=== PATIENT | female | born 1930 | race Caucasian/White ===

== ENCOUNTER 2016-09-25 22:53 | Emergency (ER) | payer OTHER ==
[~2016-09-25] VITALS: Ht 162.6 cm; Wt 54.4 kg
--- NOTE | ~2016-09-25 | EKG ---
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: KAMALA : 1930 Requested By: Balta Umaña Order Number: [id number] MD: Donaldo Cleveland Measurements Intervals [place] Rate: 92 P: 45 [place]: 174 QRS: 6 QRSD: 91 T: 66 QT: 365 QTc: 452 Interpretive Statements Sinus rhythm Low voltage, extremity leads Compared to ECG 12/23/2012 13:44:54 Low QRS voltage now present Sinus bradycardia no longer present Electronically Signed On 09-26-2016 8:09:33 CDT by Donaldo Cleveland [email or web address] <ELECTRONICALLY SIGNED> By: Donaldo Cleveland MD 05/808 06 06 Donaldo Cleveland MD /SAM
[~2016-09-25 22:53] MED LIST: CELEXA10 MG PO; COLACE100 MG PO; NOHOMEMEDICATIONS; NORCO 5-325 TA1 EACH PO
[2016-09-25 23:41] LABS: ABSOLUTE NEUTROPHILS 3.9 thou/uL (1.4-8.2); BASOPHILS 0.6 % (0.0-2.0); HEMATOCRIT 37.5 % (37.0-47.0); HEMOGLOBIN 12.3 gm/dL (12.0-15.0); LYMPHOCYTES 21.1 % (24.0-44.0); MCH 30.5 pg (26.0-34.0); MCHC 32.8 g/dL (28.0-37.0); MCV 93.2 fL (80.0-100.0); MONOCYTES 8.4 % (1.0-8.0); PLATELET COUNT 167 thou/uL (150-400); POLYS 66.9 % (36.0-66.0); RBC 4.03 mil/uL (4.20-5.00); RDW 15.9 % (10.5-14.5); WBC 5.9 thou/uL (4.0-11.0)
[2016-09-25 23:45] LABS: MANUAL DIFF NO
[2016-09-25 23:50] LABS: URINE BILIRUBIN NEGATIVE (Negative); URINE BLOOD NEGATIVE (Negative); URINE COLOR YELLOW; URINE GLUCOSE-RANDOM* NEGATIVE (Negative); URINE KETONES NEGATIVE (Negative); URINE LEUKOCYTES-REFLEX NEGATIVE (Negative); URINE PROTEIN (DIPSTICK) NEGATIVE (Negative); URINE SPECIFIC GRAVITY >= 1.030 (1.003-1.035)
[2016-09-25 23:56] LABS: ANION GAP 13 mmol/L (7-16); BUN 15 mg/dL (7-18); CALCIUM 9.2 mg/dL (8.5-10.1); CHLORIDE 103 mmol/L (98-107); CO2 26 mmol/L (21-32); CREATININE 0.9 mg/dL (0.6-1.0); GLUCOSE 146 mg/dL (74-106); SODIUM 142 mmol/L (136-145); TROPONIN-I < 0.04 ng/mL (<0.04-0.07)
[2016-09-26 00:21] LABS: LARGE PLATELETS RARE
[2016-09-26 00:55] VITALS: BP 111/74
== END 2016-09-26 02:33 | disposition home or self-care (01) ==
LOC: ER 22:53
PROVIDERS: Emergency Medicine
DX: R07.89 Other chest pain (principal); R53.1 Weakness; F03.90 Unspecified dementia, unspecified severity, without behavioral disturbance, psychotic disturbance, mood disturbance, and anxiety; Z90.89 Acquired absence of other organs; Z90.49 Acquired absence of other specified parts of digestive tract; Z90.710 Acquired absence of both cervix and uterus; Z88.2 Allergy status to sulfonamides; Z88.8 Allergy status to other drugs, medicaments and biological substances; Z87.891 Personal history of nicotine dependence

== ENCOUNTER 2017-01-16 21:18 | Inpatient (IN) | payer OTHER ==
[~2017-01-16] VITALS: Ht 144.8 cm; Wt 51.7 kg
--- NOTE | ~2017-01-16 | EKG ---
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 : 1930 Requested By: Brayan Garnett Order Number: [id number] MD: Jomar Bowman Measurements Intervals [place] Rate: 94 P: 52 MD: 177 QRS: 3 QRSD: 101 T: 35 QT: 359 QTc: 449 Interpretive Statements Sinus rhythm Borderline low voltage, extremity leads Compared to ECG 09/25/2016 23:07:19 No significant change was found Electronically Signed On 01-17-2017 8:35:05 CDT by Jomar Bowman [email or web address] <ELECTRONICALLY SIGNED> By: Jomar Bowman MD, [facility] 01/17/17 0835 21 21 Jomar Bowman MD, [facility] /EPI
[2017-01-16 21:20] VITALS: BP 125/83
[2017-01-16 21:49] LABS: ABSOLUTE NEUTROPHILS 4.6 thou/uL (1.4-8.2); BASOPHILS 0.4 % (0.0-2.0); EOSINOPHILS 1.5 % (0.0-3.0); HEMATOCRIT 39.9 % (37.0-47.0); LYMPHOCYTES 22.3 % (24.0-44.0); MCH 30.4 pg (26.0-34.0); MCHC 32.7 g/dL (28.0-37.0); MONOCYTES 6.7 % (1.0-8.0); PLATELET COUNT 134 thou/uL (150-400); POLYS 69.1 % (36.0-66.0); RBC 4.29 mil/uL (4.20-5.00); RDW 15.1 % (10.5-14.5); WBC 6.7 thou/uL (4.0-11.0)
[2017-01-16 21:52] LABS: MANUAL DIFF NO
[2017-01-16] MEDS ORDERED: ZYPREXA 10 MG T10 MG PO (21:54)
[2017-01-16] MEDS ORDERED: ARICEPT 5 MG TAB5 MG PO (21:54)
[2017-01-16] MEDS ORDERED: ASA5UEC PO (21:55)
[2017-01-16] MEDS ORDERED: PEPCID20 MG PO (21:55)
[2017-01-16 22:06] LABS: ANION GAP 9 mmol/L (7-16); BUN 26 mg/dL (7-18); CALCIUM 9.2 mg/dL (8.5-10.1); CHLORIDE 106 mmol/L (98-107); CO2 26 mmol/L (21-32); GLUCOSE 176 mg/dL (74-106); POTASSIUM 3.8 mmol/L (3.5-5.1); SODIUM 141 mmol/L (136-145)
[2017-01-16 22:14] LABS: TROPONIN-I < 0.04 ng/mL (<0.04-0.07)
[2017-01-17] VITALS (8 sets, daily range): BP systolic 124–141; BP diastolic 76–95
[2017-01-17 00:32] LABS: APTT 26.2 Seconds (24.5-32.8); PROTIME 10.4 Seconds (9.3-11.4)
[2017-01-17] MEDS ORDERED: ZYPREXA 10 MG T10 MG PO (00:36)
[2017-01-17 07:39] LABS: HEMATOCRIT 37.6 % (37.0-47.0); HEMOGLOBIN 12.1 gm/dL (12.0-15.0); MCH 30.1 pg (26.0-34.0); MCHC 32.2 g/dL (28.0-37.0); MCV 93.5 fL (80.0-100.0); RBC 4.02 mil/uL (4.20-5.00); RDW 14.9 % (10.5-14.5); WBC 7.6 thou/uL (4.0-11.0)
[2017-01-17 08:25] LABS: ANION GAP 8 mmol/L (7-16); BUN 31 mg/dL (7-18); CALCIUM 8.7 mg/dL (8.5-10.1); CHLORIDE 106 mmol/L (98-107); CO2 26 mmol/L (21-32); CREATININE 0.8 mg/dL (0.6-1.0); GLUCOSE 117 mg/dL (74-106); POTASSIUM 3.9 mmol/L (3.5-5.1); SODIUM 140 mmol/L (136-145); TROPONIN-I < 0.04 ng/mL (<0.04-0.07)
[2017-01-18 03:56] VITALS: BP 108/68
[2017-01-18 04:17] LABS: HEMATOCRIT 29.1 % (37.0-47.0); MCH 30.8 pg (26.0-34.0); MCHC 33.3 g/dL (28.0-37.0); MCV 92.5 fL (80.0-100.0); RBC 3.15 mil/uL (4.20-5.00); WBC 5.2 thou/uL (4.0-11.0)
[2017-01-18 04:31] LABS: HEMOGLOBIN 9.7 gm/dL (12.0-15.0)
[2017-01-18 04:53] LABS: ALBUMIN 2.8 g/dL (3.4-5.0); CALCIUM 8.2 mg/dL (8.5-10.1); CREATININE 0.7 mg/dL (0.6-1.0); PHOSPHORUS 3.6 mg/dL (2.5-4.9); POTASSIUM 3.8 mmol/L (3.5-5.1)
[2017-01-18 10:41] VITALS: BP 100/62
[2017-01-18 12:18] VITALS: BP 116/70
[2017-01-18 15:45] VITALS: BP 100/64
[2017-01-18 17:07] VITALS: BP 100/64
[2017-01-18 17:09] VITALS: BP 100/64
== END 2017-01-18 18:07 | disposition home or self-care (01) | DRG 166 ==
LOC: ER 21:18 → EROBS 01-17 00:22 → 4W 01-17 00:22
PROVIDERS: Hospitalist; Nurse Practitioner Family; Physician Assistant
PROC: B5191ZZ Fluoroscopy of Inferior Vena Cava using Low Osmolar Contrast (ICD-10-PCS; principal; 2017-01-17)
PROC: 06H03DZ Insertion of Intraluminal Device into Inferior Vena Cava, Percutaneous Approach (ICD-10-PCS; principal; 2017-01-17)
DX: I26.99 Other pulmonary embolism without acute cor pulmonale (principal); J96.00 Acute respiratory failure, unspecified whether with hypoxia or hypercapnia; F03.91 Unspecified dementia, unspecified severity, with behavioral disturbance; I10 Essential (primary) hypertension; I71.4 Abdominal aortic aneurysm, without rupture; Z90.49 Acquired absence of other specified parts of digestive tract; Z90.710 Acquired absence of both cervix and uterus; Z88.2 Allergy status to sulfonamides; Z87.891 Personal history of nicotine dependence; Z86.718 Personal history of other venous thrombosis and embolism; Z79.82 Long term (current) use of aspirin; Z79.899 Other long term (current) drug therapy; Z86.73 Personal history of transient ischemic attack (TIA), and cerebral infarction without residual deficits; Z87.81 Personal history of (healed) traumatic fracture
CPT/HCPCS: 10045

== ENCOUNTER 2017-04-11 16:04 | Inpatient (IN) | payer OTHER ==
[~2017-04-11] VITALS: Ht 149.9 cm; Wt 81.6 kg
--- NOTE | ~2017-04-11 | HC ---
[facility] [place] [address] [place] [address] CONSULTATION Name: ESTRELLA CHOE Jenaro Room #: 423-1 [facility] IN .R.#: [id number] Admission: 04/11/17 Attend Phys: Eliceo Higgins MD Discharge: 04/16/17 Date of : 32 Report #: [id number] THIS REPORT FOR: //name// CC: Eliceo Jimenez DATE OF SERVICE: 04/13/2017 HISTORY OF PRESENT ILLNESS: The patient is an 86-year-old white female with a history of prior pulmonary emboli, bilateral DVT, had an IVC filter on 01/2017, was having problems with recurrent falls, and was discharged from [facility] to [facility] on 03/20/2017. She had significant lower extremity edema at that time. While at [facility], the daughter notes her swelling gradually worsened. She was eventually discharged from the long term facility on 04/05/2017. Daughter notes that upon taking her home she was significantly swollen as far as her lower extremities and had considerable difficulty with any attempted ambulation. The patient has now been readmitted to [facility] with increasing lower extremity edema. Ultrasound of the lower extremities revealed acute appearing occlusive DVT within bilateral lower extremities. Internal Medicine is involved, was trying to diuresed her with some difficulty with her large amount of clot burden. She has a prior history of an abdominal aortic aneurysm and a CT is completed with plan to start Eliquis, pending results. The patient has had a significant functional decline and we are seeing her in rehabilitation medicine consultation. She was noted to have severe bilateral lower extremity edema. PAST MEDICAL HISTORY: Includes AAA, bilateral DVTs, pulmonary emboli 08/21 and 01/21, dementia, nevertheless living in the community with family, history of left elbow fracture, left wrist fracture, right arm fracture, left ankle fracture, bladder tuck up, hysterectomy. PAST SURGICAL HISTORY: As noted above. HABITS: Past history of tobacco abuse. No history of alcohol abuse. SOCIAL HISTORY: She lives with her supportive involved daughter. Daughter works during the day, but had been taking her to the adult daycare every day. The patient was able to ambulate short distances with her walker and was able to ambulate up and down the 6 steps within the house. REVIEW OF SYSTEMS: Did not offer any current complaints of chest pain, shortness of breath, or abdominal discomfort. PHYSICAL EXAMINATION: GENERAL: An 86-year-old white female, in no obvious distress. She is overall a thin, small statured, [place] [address] CONSULTATION Name: ESTRELLA CHOE Room #: 423-1 [facility] IN [facility].#: [id number] Admission: 04/11/17 Attend Phys: Eliceo Higgins MD Discharge: 04/16/17 Date of : 32 Report #: [id number] VITAL SIGNS: Temperature 96.9, pulse 65, respirations 16, blood pressure 102/64. HEENT: Faces appeared symmetric. EXTREMITIES: She has functional range of motion of the upper extremities with arthritic changes, most notable involving her hands. In her lower extremities, she has 3+ pitting edema. She is able to move her legs. I would grade her a 3+/5. Tone appeared to be intact. She was mod assist with sit to stand. Gait was 6 steps mod assist. Toilet transfers were mod assist. ASSESSMENT: An 86-year-old white female with the following problem list: 1. Medical complexity with generalized debilitation. 2. Bilateral deep venous thrombosis with history of prior deep venous thrombosis, pulmonary embolism. She is status post prior IVC filter. She now has significantly worsening bilateral lower extremity edema with significant decreased function. 3. History of abdominal aortic aneurysm. 4. Severe bilateral lower extremity edema. 5. History of dementia, nevertheless living in the community. She has been on Aricept. 6. History of acute renal insufficiency. 7. Past history of recurrent falls. 8. History of cardiomegaly. PLAN: The patient was recently discharged from [facility], was just at a long term facility, has had a significant further decline and has considerable lower extremity edema with the complex medical situation as noted above. Rather than going for another long term facility stay, which increases the chances of repeating this process, I think an acute in-hospital inpatient rehabilitation stay where she can receive more close medical management while she is simultaneously undergoing inpatient rehabilitation to improve her functional mobility and ADLs would be indicated. The patient does appear to have the tolerance for an acute rehab stay. I had a long discussion with the daughter who is very supportive and very involved and with desire to have this occur to maximally increase her mother's chances to further improve and make it home at a much improved functional level with improved chances for her to stay at home post-discharge. Insurance will be checked in this regard. <ELECTRONICALLY SIGNED> By: Arnulfo Pinto MD 04/17/17 1414 1122 1224 Arnulfo Pinto MD /PMT
[~2017-04-11 16:04] MED LIST changes: +ACETAMINOPHEN325 M1 PO; +ARICEPT 5 MG TAB5 MG PO; +ASA5UEC PO; +MIRALAX17 GM PO; +PEPCID20 MG PO; +ZYPREXA 10 MG T10 MG PO
[2017-04-11 16:05] VITALS: BP 107/59
[2017-04-11 16:43] LABS: ABSOLUTE NEUTROPHILS 3.6 thou/uL (1.4-8.2); BASOPHILS 1.4 % (0.0-2.0); HEMOGLOBIN 11.3 gm/dL (12.0-15.0); LYMPHOCYTES 29.8 % (24.0-44.0); MCH 27.4 pg (26.0-34.0); MCHC 31.4 g/dL (28.0-37.0); MCV 87.2 fL (80.0-100.0); PLATELET COUNT 251 thou/uL (150-400); POLYS 53.8 % (36.0-66.0); RBC 4.13 mil/uL (4.20-5.00); RDW 17.3 % (10.5-14.5); WBC 6.7 thou/uL (4.0-11.0)
[2017-04-11 16:46] LABS: MANUAL DIFF NO
[2017-04-11] MEDS ORDERED: ZYPREXA 10 MG T10 MG PO (16:46)
[2017-04-11] MEDS ORDERED: LASIX 40 MG TAB40 M2 PO (16:46)
[2017-04-11 16:51] LABS: ANION GAP 6 mmol/L (7-16); BUN 9 mg/dL (7-18); CALCIUM 8.8 mg/dL (8.5-10.1); CHLORIDE 103 mmol/L (98-107); CO2 28 mmol/L (21-32); CREATININE 0.8 mg/dL (0.6-1.0); GLUCOSE 108 mg/dL (74-106); POTASSIUM 4.2 mmol/L (3.5-5.1); SODIUM 137 mmol/L (136-145)
[2017-04-11 16:59] LABS: ALBUMIN 2.9 g/dL (3.4-5.0); ALKALINE PHOSPHATASE 110 U/L (46-116); SGOT 38 U/L (15-37); SGPT 16 U/L (30-65); TOTAL BILIRUBIN 0.5 mg/dL (<0.1-1.0); TOTAL PROTEIN 7.3 g/dL (6.4-8.2); TROPONIN-I < 0.04 ng/mL (<0.06)
[2017-04-11 18:36] LABS: PROTIME 10.1 Seconds (9.3-11.4)
[2017-04-11 18:38] VITALS: BP 134/87
[2017-04-11 18:43] VITALS: BP 109/52
[2017-04-11 19:40] VITALS: BP 111/70
[2017-04-12] VITALS: BP 96/53
[2017-04-12 04:00] VITALS: BP 112/59
[2017-04-12 06:42] LABS: MCH 27.9 pg (26.0-34.0); MCHC 32.3 g/dL (28.0-37.0); MCV 86.4 fL (80.0-100.0); RBC 3.24 mil/uL (4.20-5.00); RDW 16.5 % (10.5-14.5); WBC 4.2 thou/uL (4.0-11.0)
[2017-04-12 06:53] LABS: CALCIUM 8.7 mg/dL (8.5-10.1); CREATININE 0.7 mg/dL (0.6-1.0); POTASSIUM 3.4 mmol/L (3.5-5.1)
[2017-04-12 08:00] VITALS: BP 103/56
[2017-04-12 16:00] VITALS: BP 104/57
[2017-04-12 20:00] VITALS: BP 100/72
[2017-04-13 06:15] VITALS: BP 131/71
[2017-04-13 07:50] VITALS: BP 102/64
[2017-04-13 15:40] VITALS: BP 108/70
[2017-04-13 19:29] VITALS: BP 108/58
[2017-04-14 03:33] VITALS: BP 103/59
[2017-04-14 07:50] VITALS: BP 122/73
[2017-04-14 15:15] VITALS: BP 95/58
[2017-04-14 19:25] VITALS: BP 98/63
[2017-04-15 03:30] VITALS: BP 112/55
[2017-04-15 03:53] LABS: HEMATOCRIT 28.6 % (37.0-47.0); HEMOGLOBIN 9.2 gm/dL (12.0-15.0); MCH 27.5 pg (26.0-34.0); MCHC 32.4 g/dL (28.0-37.0); MCV 84.8 fL (80.0-100.0); RBC 3.37 mil/uL (4.20-5.00); RDW 16.8 % (10.5-14.5); WBC 4.7 thou/uL (4.0-11.0)
[2017-04-15 04:00] LABS: CALCIUM 8.2 mg/dL (8.5-10.1); CREATININE 0.8 mg/dL (0.6-1.0)
[2017-04-15 04:09] LABS: POTASSIUM 2.9 mmol/L (3.5-5.1)
[2017-04-15 09:15] VITALS: BP 111/70
[2017-04-15 17:20] VITALS: BP 99/57
[2017-04-15 20:00] VITALS: BP 100/67
[2017-04-15 23:00] VITALS: BP 129/54
[2017-04-16 04:00] VITALS: BP 116/65
[2017-04-16 04:41] VITALS: BP 122/70
[2017-04-16 06:15] LABS: CALCIUM 8.4 mg/dL (8.5-10.1); CREATININE 0.8 mg/dL (0.6-1.0); POTASSIUM 3.1 mmol/L (3.5-5.1)
[2017-04-16 07:45] VITALS: BP 106/68
[2017-04-16] MEDS ORDERED: ELIQUIS5 MG PO (15:06)
== END 2017-04-16 15:00 | DRG 300 ==
LOC: ER 16:04 → 4E 17:57 → EROBS 17:57 → 4E 18:56
PROVIDERS: Hospitalist; Physician Assistant
DX: I82.413 Acute embolism and thrombosis of femoral vein, bilateral (principal); E46 Unspecified protein-calorie malnutrition; I82.433 Acute embolism and thrombosis of popliteal vein, bilateral; M62.84 Sarcopenia; I71.4 Abdominal aortic aneurysm, without rupture; F03.90 Unspecified dementia, unspecified severity, without behavioral disturbance, psychotic disturbance, mood disturbance, and anxiety; Z90.49 Acquired absence of other specified parts of digestive tract; Z90.710 Acquired absence of both cervix and uterus; Z68.36 Body mass index [BMI] 36.0-36.9, adult; Z88.2 Allergy status to sulfonamides; Z88.8 Allergy status to other drugs, medicaments and biological substances; Z87.891 Personal history of nicotine dependence; Z87.81 Personal history of (healed) traumatic fracture; Z79.82 Long term (current) use of aspirin; Z79.899 Other long term (current) drug therapy
CPT/HCPCS: 10183

== ENCOUNTER 2017-07-10 09:12 | Inpatient (IN) | payer OTHER ==
[~2017-07-10] VITALS: Ht 170.2 cm; Wt 79.4 kg
--- NOTE | ~2017-07-10 | EKG ---
[place] [address] [facility] [place] [place] [address] ELECTROCARDIOGRAM REPORT Name: ESTRELLA CHOE Room #: 432-P ADM IN M.R.#: [id number] Admission: 07/10/17 Attend Phys: Melvin Sherman MD Discharge: Date of : 32 Report #: [id number] THIS REPORT FOR: //name// [facility] ED Test Date: 2017-07-10 Test Time: 10:41:56 Pat Name: ESTRELLA CHOE Department: Room: [facility] Gender: F Rn Telephonic: [facility] : 1930 Requested By: Bridger Koch Order Number: [id number] MD: Jomar Bowman Measurements Intervals [place] Rate: 72 P: 48 [place]: 182 QRS: 31 QRSD: 107 T: 31 QT: 468 QTc: 513 Interpretive Statements Sinus rhythm Borderline low voltage, extremity leads Prolonged QT interval Nonspecific ST segment abnormality Compared to ECG 03/16/2017 09:49:00 Prolonged QT interval now present Electronically Signed On 07-11-2017 7:52:02 CHIPPER OPERATOR by Jomar Bowman [email or web address] <ELECTRONICALLY SIGNED> By: Jomar Bowman MD, [facility] 07/11/17 0752 1041 1041 Jomar Bowman MD, [facility] /EPI
[~2017-07-10 09:12] MED LIST changes: +ELIQUIS5 MG PO; +LASIX 40 MG TAB40 M2 PO
[2017-07-10 11:59] LABS: ANION GAP 8 mmol/L (7-16); BUN 15 mg/dL (7-18); CALCIUM 8.7 mg/dL (8.5-10.1); CHLORIDE 98 mmol/L (98-107); CO2 34 mmol/L (21-32); CREATININE 0.9 mg/dL (0.6-1.0); GLUCOSE 112 mg/dL (74-106); SODIUM 140 mmol/L (136-145)
[2017-07-10 12:07] LABS: ALBUMIN 2.8 g/dL (3.4-5.0); SGOT 25 U/L (15-37); SGPT 22 U/L (30-65); TOTAL BILIRUBIN 0.9 mg/dL (<0.1-1.0); TOTAL PROTEIN 6.2 g/dL (6.4-8.2); TROPONIN-I < 0.04 ng/mL (<0.06)
[2017-07-10 12:08] LABS: POTASSIUM 2.6 mmol/L (3.5-5.1)
[2017-07-10 12:09] LABS: HEMATOCRIT 23.5 % (37.0-47.0); HEMOGLOBIN 7.5 gm/dL (12.0-15.0); MCH 25.2 pg (26.0-34.0); MCHC 32.1 g/dL (28.0-37.0); MCV 78.7 fL (80.0-100.0); PLATELET COUNT 227 thou/uL (150-400); RBC 2.98 mil/uL (4.20-5.00); RDW 17.8 % (10.5-14.5); WBC 4.4 thou/uL (4.0-11.0)
[2017-07-10 12:21] LABS: INR 1.1; PROTIME 11.6 Seconds (9.3-11.4)
[2017-07-10 12:44] LABS: URINE BILIRUBIN NEGATIVE (Negative); URINE BLOOD NEGATIVE (Negative); URINE CLARITY CLEAR; URINE COLOR YELLOW; URINE GLUCOSE-RANDOM* NEGATIVE (Negative); URINE KETONES NEGATIVE (Negative); URINE LEUKOCYTES NEGATIVE (Negative); URINE NITRITE NEGATIVE (Negative); URINE PROTEIN (DIPSTICK) NEGATIVE (Negative)
[2017-07-10 12:58] LABS: ABSOLUTE NEUTROPHILS 2.7 thou/uL (1.4-8.2); PLATELET ESTIMATE NORMAL
[2017-07-10 15:07] VITALS: BP 100/43
[2017-07-10 15:49] VITALS: BP 106/41
[2017-07-10 16:30] VITALS: BP 87/45
[2017-07-10 19:55] VITALS: BP 105/51
[2017-07-11 07:32] VITALS: BP 98/59
[2017-07-11 12:47] VITALS: BP 98/59
[2017-07-11 16:39] VITALS: BP 113/62
[2017-07-11 19:45] VITALS: BP 125/54
[2017-07-12 03:30] VITALS: BP 134/79
[2017-07-12 08:06] VITALS: BP 110/65
[2017-07-12 09:24] LABS: HEMATOCRIT 24.3 % (37.0-47.0); HEMOGLOBIN 7.8 gm/dL (12.0-15.0); MCH 25.6 pg (26.0-34.0); MCHC 31.9 g/dL (28.0-37.0); MCV 80.2 fL (80.0-100.0); RBC 3.03 mil/uL (4.20-5.00); RDW 18.5 % (10.5-14.5); WBC 4.3 thou/uL (4.0-11.0)
[2017-07-12 09:38] LABS: % SATURATION 8 % (20-39); IRON 27 ug/dL (50-170); TIBC 341 ug/dL (250-450)
[2017-07-12 09:42] LABS: ALBUMIN 2.5 g/dL (3.4-5.0); CREATININE 0.7 mg/dL (0.6-1.0); MAGNESIUM 2.2 mg/dL (1.8-2.4); POTASSIUM 3.8 mmol/L (3.5-5.1); TOTAL BILIRUBIN 0.7 mg/dL (<0.1-1.0); TOTAL PROTEIN 5.4 g/dL (6.4-8.2)
[2017-07-12] MEDS ORDERED: MIRALAX17 GM PO (14:38)
[2017-07-12] MEDS ORDERED: SENNA-TIME S T1 EACH PO (14:38)
[2017-07-12] MEDS ORDERED: IRON325 PO (14:43)
[2017-07-12] MEDS ORDERED: TYLENOL EXTRA500 MG PO (14:43)
== END 2017-07-12 15:51 | DRG 542 ==
LOC: ER 09:12 → EROBS 13:04 → 4E 13:04
PROVIDERS: Physician Assistant; Registered Nurse
PROC: 2W39X1Z Immobilization of Left Upper Extremity using Splint (ICD-10-PCS; principal; 2017-07-10)
DX: M48.56XA Collapsed vertebra, not elsewhere classified, lumbar region, initial encounter for fracture (principal); E43 Unspecified severe protein-calorie malnutrition; R29.6 Repeated falls; S62.109A Fracture of unspecified carpal bone, unspecified wrist, initial encounter for closed fracture; M47.817 Spondylosis without myelopathy or radiculopathy, lumbosacral region; F03.90 Unspecified dementia, unspecified severity, without behavioral disturbance, psychotic disturbance, mood disturbance, and anxiety; D64.9 Anemia, unspecified; E87.6 Hypokalemia; Z66 Do not resuscitate; I71.4 Abdominal aortic aneurysm, without rupture; Z79.899 Other long term (current) drug therapy; Z90.49 Acquired absence of other specified parts of digestive tract; Z90.710 Acquired absence of both cervix and uterus; Z86.718 Personal history of other venous thrombosis and embolism; Z88.2 Allergy status to sulfonamides; Z88.8 Allergy status to other drugs, medicaments and biological substances; Z87.891 Personal history of nicotine dependence; Z28.21 Immunization not carried out because of patient refusal; W18.39XA Other fall on same level, initial encounter; Y93.89 Activity, other specified; Y92.89 Other specified places as the place of occurrence of the external cause; Y99.8 Other external cause status
CPT/HCPCS: 10183

== ENCOUNTER 2017-07-24 03:47 | Inpatient (IN) | payer OTHER ==
[~2017-07-24] VITALS: Ht 152.4 cm; Wt 83.7 kg
--- NOTE | ~2017-07-24 | 2DMMODE ---
[facility] [address] [place] [address] 2 D/M-MODE ECHOCARDIOGRAM Name: ДМИТРИЙESTRELLA Room #: 405-P ADM IN M.R.#: [id number] Admission: 07/24/17 Attend Phys: Jim Ngo Discharge: Date of : 34 Date of Service: 07/25/17 1003 Report #: [id number] THIS REPORT FOR: //name// APPROVED REPORT Study performed: 07/25/2017 08:46:57 EXAM: Comprehensive 2D, Doppler, and color-flow Echocardiogram Patient Location: Bedside Room #: 405 Status: routine BSA: 1.80 HR: 60 bpm BP: 92/42 mmHg Other Information Study Quality: Good Indications Congestive Heart Failure 2D Dimensions RVDd: 41.41 mm LVEF(%): 55.21 (>50%) IVSd: 8.77 (7-11mm) LVOT Diam: 18.78 (18-24mm) LVDd: 42.68 mm PWd: 8.10 (7-11mm) Ascending Ao: 26.04 (22-36mm) LVDs: 30.54 (25-40mm) Aortic Root: 28.80 mm IVC: 15.00 mm Valencia's LVEF: 55.21 % Volumes Left Atrial Volume (Systole) Single Plane 4CH: 93.78 mL Single Plane 2CH: 57.64 mL LA ESV Index: 43.00 mL/m2 Aortic Valve AoV Peak Moises.: 1.48 m/s AO Peak Gr.: 8.77 mmHg LVOT Max P.14 mmHg LVOT Max V: 1.24 m/s TIESHA Vmax: 2.32 cm2 Mitral Valve E/A Ratio: 0.7 MV Decel. Time: 277.25 ms MV E Max Moises.: 0.65 m/s [facility] [place] [address] 2 D/M-MODE ECHOCARDIOGRAM Name: ESTRELLA CHOE Room #: 405-P [facility] IN M.R.#: [id number] Admission: 07/24/17 Attend Phys: Jim Ngo Discharge: Date of : 34 Date of Service: 07/25/17 1003 Report #: [id number] A Moises.: 0.87 m/s MV PHT: 80.40 ms IVRT: 119.95 ms Pulmonary Valve PV Peak Moises.: 0.96 m/s PV Peak Gr.: 3.66 mmHg Pulmonary Vein P Vein S: 0.50 m/s P Vein A: 0.28 m/s P Vein D: 0.30 m/s P Vein A Dur.: 120.0 msec P Vein S/D Ratio: 1.67 Tricuspid Valve TR Peak Moises.: 2.62 m/s TR Peak Gr.: 27.56 mmHg PA Pressure: 33.00 mmHg Left Ventricle The left ventricle is normal size. The left ventricle is normal size. There is normal LV segmental wall motion. There is normal left ventricular wall thickness. The left ventricular systolic function is normal. The left ventricular ejection fraction is within the normal range. LVEF is 55-60%. Grade I - abnormal relaxation pattern. Right Ventricle Right ventricle is at the upper limits of normal. The right ventricular systolic function is normal. Atria Left atrium is dilated. Right atrium is dilated. Aortic Valve Aortic valve is mildly calcified. Mild aortic regurgitation. There is no aortic valvular stenosis. Mitral Valve The mitral valve is normal in structure. Mild mitral regurgitation. No evidence of mitral valve stenosis. Tricuspid Valve The tricuspid valve is normal in structure. There is mild tricuspid regurgitation. Estimated PAP 33 mmHg. There is mild pulmonary hypertension. Pulmonic Valve The pulmonary valve is normal in structure. Trace pulmonic [facility] [address] [place] [address] 2 D/M-MODE ECHOCARDIOGRAM Name: ESTRELLA CHOE Room #: 405-P ADM IN M.R.#: [id number] Admission: 07/24/17 Attend Phys: Jim Ngo Discharge: Date of : 32 Date of Service: 07/25/17 1003 Report #: [id number] regurgitation. Great Vessels The aortic root is normal in size. IVC is normal in size and collapses >50% with inspiration. Pericardium There is no pericardial effusion. <Conclusion> The left ventricular systolic function is normal. There is normal LV segmental wall motion. LVEF is 55-60%. Grade I diastolic dysfunction Both atria are dilated. Aortic valve is mildly calcified. Mild aortic regurgitation, no stenosis. The mitral valve is normal in structure. Mild mitral regurgitation. There is mild tricuspid regurgitation. Estimated pulmonary artery pressure of 33 mmHg. There is no pericardial effusion. <ELECTRONICALLY SIGNED> By: Jomar Bowman MD, FACC 07/25/17 1003 1003 1003 Jomar Bowman MD, FACC /INF
--- NOTE | ~2017-07-24 | HC ---
[facility] [place] [address] CONSULTATION Name: ESTRELLA CHOE Room #: 405-P [facility] IN M.R.#: [id number] Admission: 07/24/17 Attend Phys: Jim Gonzalez Discharge: 07/27/17 Date of : 32 Report #: [id number] THIS REPORT FOR: //name// CC: Davey Jimenez PALLIATIVE CARE CONSULTATION REQUESTING PHYSICIAN: Davey. CHIEF COMPLAINT: Failure to thrive. HISTORY OF PRESENT ILLNESS: The patient is an 87-year-old female who presented initially this a.m. to the hospital with altered mental status reported from her daughter with whom she was living for 3 days prior to arrival to the Emergency Department. The patient has apparently had hallucinations over the last day and alteration in her speech. This was concerning to the daughter for a CVA, prompting her to bring her to the hospital. She had a previous L3 fracture and left wrist fracture secondary to fall and has had multiple falls over the last year and multiple admissions. PAST MEDICAL HISTORY: Dementia; AAA; anemia; history of DVT, this was 08/2016, bilateral lower extremities; also, has had pulmonary embolism in 08/2016 and 01/2017. She has had a laminectomy; tonsillectomy; appendectomy; hysterectomy; bladder sling, left ankle, wrist and elbow fractures as well as right leg fracture. She had an IVC filter placed 01/2017. SOCIAL HISTORY: She is a former smoker. Daughter is durable power of securities attorney, who I spoke with this evening, Peggy Morton. ALLERGIES: SULFA AND SIMVASTATIN. MEDICATIONS: Reviewed. Initially included Zyprexa, recently changed to Depakote. FAMILY HISTORY: Noncontributory. REVIEW OF SYSTEMS: GENERAL: The patient reports feeling well at the current point in time. She denies any fevers. CARDIOVASCULAR: Denies chest pain or palpitations. RESPIRATORY: Denies shortness of breath, wheezing or cough. ABDOMEN: Denies nausea, vomiting, constipation or diarrhea. Reports good appetite and is eating currently during my exam. PSYCHIATRIC: Denies anxiety or depression at this current point in time. [facility] [address] [place] [address] CONSULTATION Name: ESTRELLA CHOE Room #: [facility] IN [facility].#: [id number] Admission: 07/24/17 Attend Phys: Jim Gonzalez Discharge: 07/27/17 Date of : 32 Report #: [id number] PHYSICAL EXAMINATION: VITAL SIGNS: Included temperature 36.4, pulse 85, respirations 20, blood pressure 108/66 and 100% on room air. GENERAL: The patient is alert. She is oriented to self only. No acute distress. HEENT: Extraocular muscles appear to be intact. Normocephalic and atraumatic. No scleral icterus. No conjunctival injection. CARDIOVASCULAR: Regular rate and rhythm, without murmur. LUNGS: Clear to auscultation bilaterally. No wheezes, rales or rhonchi. ABDOMEN: Soft, nontender to palpation x 4. Positive bowel sounds noted in all 4 quadrants. NEUROLOGIC: Cranial nerves 2-12 appear to be grossly intact. EXTREMITIES: Does have edema in lower extremities bilaterally. LABORATORY DATA: Labs did include B12 of 767. TSH 2.399. Creatinine 0.7, BUN 10. Hemoglobin 8.9, white blood cell count 3.1. Albumin 3.0. Urinalysis was negative. Chest x-ray, no gross positivity for any kind of infectious process. ASSESSMENT AND PLAN: 1. Delirium, unknown origin at this time. I am not favoring infectious process, possible transient ischemic attack. It is also possible that multiple other scenarios may have led to this. I discussed this with the patient's daughter at this time. I had discussed that at this current point in time, her hospice diagnoses will have to be either dementia or senile degeneration of the brain and/or if she were to be found on echocardiogram to have congestive heart failure, which the patient's daughter reports she had in the past, and she were to have increasing edema and decreasing compensation, that she might qualify, but at this point in time, it does not appear to be [place] [facility] 4 or even 3. It is difficult to say as I have not witnessed her ambulatory ability. I do not believe the patient currently were to qualify, although given her history of pulmonary embolism that might also be a criteria as well. If she were to have further decline or weight loss instead of weight gain, which she has had, she may qualify for senile degeneration. I did discuss that we could further discuss this at her discharge, that our plan is to discharge to long-term care, which I am currently a physician at and would quite probably assume care of the patient and could discuss further with daughter, which she was amenable to. I spent approximately 30 minutes in discussion of advanced care planning today and will follow as an outpatient. 2. Dementia contributing to above. Again, it is quite possible that her dementia contributed to these significant changes. Unknown what caused this abrupt change, but it is possible that dementia is the only underlying factor. I do agree with recent changes to Depakote. This may be beneficial from a standpoint of anxiety and agitation, although the patient is currently calm at this point in time. This appears to be a good part of the day for her currently. 3. History of pulmonary embolism. Again, this contributes to above. She does [facility] [address] [place] [address] CONSULTATION Name: ESTRELLA CHOE Room #: 405-P DIS IN M.R.#: [id number] Admission: 07/24/17 Attend Phys: Jim Gonzalez Discharge: 07/27/17 Date of : 34 Report #: [id number] have an IVC filter in place, not currently on anticoagulation. 4. Anemia. Again, this contributes as well. Unknown origin, but appears to be chronic and unlikely stable for the patient. We will follow up as outpatient. Again, I appreciate the consult. I will continue to follow along with her results including the echocardiogram, which may change our management. At this point in time, I have discussed that we can consider future possible hospice consultations on an outpatient basis. Thank you very much for the consultation. <ELECTRONICALLY SIGNED> By: Pino Valadez DO 08/28/17 1630 2242 2319 Pino Valadez DO /nt
[~2017-07-24 03:47] MED LIST changes: +IRON325 PO; +SENNA-TIME S T1 EACH PO; +TYLENOL EXTRA500 MG PO
[2017-07-24 04:54] VITALS: BP 133/64
[2017-07-24 05:11] LABS: URINE CLARITY CLEAR; URINE COLOR YELLOW; URINE SPECIFIC GRAVITY 1.025 (1.005-1.035)
[2017-07-24] MEDS ORDERED: VITAMIN D3400 UNIT PO (05:11)
[2017-07-24 05:12] LABS: URINE BILIRUBIN NEGATIVE (Negative); URINE BLOOD NEGATIVE (Negative); URINE GLUCOSE-RANDOM* NEGATIVE (Negative); URINE KETONES NEGATIVE (Negative); URINE LEUKOCYTES-REFLEX NEGATIVE (Negative); URINE NITRITE-REFLEX NEGATIVE (Negative); URINE PROTEIN (DIPSTICK) NEGATIVE (Negative); URINE UROBILINOGEN 0.2 E.U./dl (0.2-1.0)
[2017-07-24] MEDS ORDERED: VITAMINC500 PO (05:14)
[2017-07-24 05:38] LABS: HEMATOCRIT 27.9 % (37.0-47.0); HEMOGLOBIN 8.9 gm/dL (12.0-15.0); MCH 27.1 pg (26.0-34.0); MCHC 31.7 g/dL (28.0-37.0); MCV 85.4 fL (80.0-100.0); PLATELET COUNT 213 thou/uL (150-400); RBC 3.27 mil/uL (4.20-5.00); RDW 25.4 % (10.5-14.5); WBC 3.1 thou/uL (4.0-11.0)
[2017-07-24 06:08] LABS: CALCIUM 9.3 mg/dL (8.5-10.1); CREATININE 0.7 mg/dL (0.6-1.0)
[2017-07-24 06:13] LABS: DIRECT BILIRUBIN 0.2 mg/dL (<0.1-0.3); TOTAL BILIRUBIN 0.6 mg/dL (<0.1-1.0); TOTAL PROTEIN 6.7 g/dL (6.4-8.2)
[2017-07-24 06:20] LABS: ABSOLUTE NEUTROPHILS 1.6 thou/uL (1.4-8.2)
[2017-07-24 06:21] LABS: ANISOCYTOSIS 3+
[2017-07-24 06:59] VITALS: BP 133/64
[2017-07-24 08:15] VITALS: BP 108/49
[2017-07-24 12:50] LABS: TSH 2.899 uIU/mL (0.358-3.740)
[2017-07-24 16:00] VITALS: BP 108/66
[2017-07-24 20:00] VITALS: BP 123/80
[2017-07-25 03:54] VITALS: BP 92/42
[2017-07-25 06:28] LABS: HEMATOCRIT 27.6 % (37.0-47.0); HEMOGLOBIN 8.8 gm/dL (12.0-15.0); MCH 27.4 pg (26.0-34.0); MCHC 31.8 g/dL (28.0-37.0); MCV 86.3 fL (80.0-100.0); RBC 3.2 mil/uL (4.20-5.00); RDW 26.6 % (10.5-14.5); WBC 3.1 thou/uL (4.0-11.0)
[2017-07-25 08:20] VITALS: BP 114/58
[2017-07-25 16:38] VITALS: BP 118/71
[2017-07-25 20:32] VITALS: BP 128/59
[2017-07-26 05:25] VITALS: BP 113/56
[2017-07-26 07:45] VITALS: BP 111/58
[2017-07-26] MEDS ORDERED: SEROQUEL 25 MG25 M1 PO (08:56)
[2017-07-26] MEDS ORDERED: DEPAKOTE 250MG250 M1 PO (08:56)
[2017-07-26 16:45] VITALS: BP 119/65
[2017-07-26 17:02] VITALS: BP 145/65
[2017-07-26 17:03] VITALS: BP 151/73
[2017-07-26 20:15] VITALS: BP 118/68
[2017-07-27 04:00] VITALS: BP 129/89
[2017-07-27 08:10] VITALS: BP 127/87
== END 2017-07-27 14:45 | DRG 70 ==
LOC: ER 03:47 → EROBS 06:25 → 4N 06:25
PROVIDERS: Emergency Medicine; Hospitalist
DX: G93.40 Encephalopathy, unspecified (principal); E43 Unspecified severe protein-calorie malnutrition; I82.403 Acute embolism and thrombosis of unspecified deep veins of lower extremity, bilateral; S32.039A Unspecified fracture of third lumbar vertebra, initial encounter for closed fracture; F03.91 Unspecified dementia, unspecified severity, with behavioral disturbance; R29.6 Repeated falls; R41.0 Disorientation, unspecified; D64.9 Anemia, unspecified; M19.90 Unspecified osteoarthritis, unspecified site; I71.4 Abdominal aortic aneurysm, without rupture; Z66 Do not resuscitate; M62.84 Sarcopenia; S62.102A Fracture of unspecified carpal bone, left wrist, initial encounter for closed fracture; Z90.49 Acquired absence of other specified parts of digestive tract; Z90.710 Acquired absence of both cervix and uterus; Z88.2 Allergy status to sulfonamides; Z88.8 Allergy status to other drugs, medicaments and biological substances; Z87.891 Personal history of nicotine dependence; Z68.36 Body mass index [BMI] 36.0-36.9, adult
CPT/HCPCS: 10091

== ENCOUNTER → 2017-10-19 | Outpatient (CLI) | payer OTHER ==
[~2017-10-19] VITALS: Ht 149.9 cm; Wt 91.0 kg
[~2017-10-19] MED LIST changes: +DEPAKOTE 250MG250 M1 PO; +SEROQUEL 25 MG25 M1 PO; +VITAMIN D3400 UNIT PO; +VITAMINC500 PO
[2017-10-19 08:18] VITALS: BP 122/46
== END | disposition home or self-care (01) ==
LOC: SPEC 06:10
DX: Z45.2 Encounter for adjustment and management of vascular access device (principal); F03.90 Unspecified dementia, unspecified severity, without behavioral disturbance, psychotic disturbance, mood disturbance, and anxiety; Z90.710 Acquired absence of both cervix and uterus; Z90.49 Acquired absence of other specified parts of digestive tract; Z98.890 Other specified postprocedural states; Z79.899 Other long term (current) drug therapy; Z86.718 Personal history of other venous thrombosis and embolism; Z88.2 Allergy status to sulfonamides; Z88.8 Allergy status to other drugs, medicaments and biological substances; Z86.711 Personal history of pulmonary embolism

== ENCOUNTER 2018-09-03 17:27 | Inpatient (IN) | payer OTHER ==
[~2018-09-03] VITALS: Ht 157.5 cm; Wt 94.8 kg
[2018-09-03 17:28] VITALS: BP 92/46
[2018-09-03 17:50] LABS: HEMATOCRIT 33.9 % (37.0-47.0); HEMOGLOBIN 11.8 gm/dL (12.0-15.0); MCH 33.8 pg (26.0-34.0); MCHC 34.9 g/dL (28.0-37.0); MCV 96.7 fL (80.0-100.0); RBC 3.5 mil/uL (4.20-5.00); RDW 14.5 % (10.5-14.5); WBC 4.7 thou/uL (4.0-11.0)
[2018-09-03 17:59] LABS: CALCIUM 9.1 mg/dL (8.5-10.1); CREATININE 0.8 mg/dL (0.6-1.0); POTASSIUM 4.4 mmol/L (3.5-5.1)
[2018-09-03] MEDS ORDERED: BIOTENE ORALB44.3 ML PO (18:44)
[2018-09-03] MEDS ORDERED: BISACODYL SUPP10 MG RECTAL (18:44)
[2018-09-03] MEDS ORDERED: BUSPIRONE HCL10 MG PO (18:45)
[2018-09-03] MEDS ORDERED: DEPAKOTE125 MG PO (18:45)
[2018-09-03] MEDS ORDERED: GABAPENTIN 100100 MG PO (18:46)
[2018-09-03] MEDS ORDERED: VOLTAREN GEL 1100 G2 TOP (18:46)
[2018-09-03] MEDS ORDERED: CLARITIN10 MG PO (18:47)
[2018-09-03] MEDS ORDERED: IPRAT-ALBUT 0.5-3 ML INH (18:47)
[2018-09-03] MEDS ORDERED: NYAMYC15 GM TOP (18:48)
[2018-09-03] MEDS ORDERED: MILK OF MA400 MG/5 M PO (18:48)
[2018-09-03] MEDS ORDERED: KLOR-CON 1010 MEQ PO (18:49)
[2018-09-03] MEDS ORDERED: SPIRONOLACTONE25 M1 PO (18:50)
[2018-09-03] MEDS ORDERED: TRAMADOL 50 MG50 MG PO ×2 (18:50)
[2018-09-03] MEDS ORDERED: ZOLOFT25 MG PO (18:50)
[2018-09-03] MEDS ORDERED: TYLENOL EXTRA500 MG PO (18:51)
[2018-09-03] MEDS ORDERED: METOLAZONE 2.52.5 MG PO (18:51)
[2018-09-03 19:49] LABS: URINE BILIRUBIN NEGATIVE (Negative); URINE BLOOD NEGATIVE (Negative); URINE CLARITY CLEAR; URINE COLOR YELLOW; URINE GLUCOSE-RANDOM* NEGATIVE (Negative); URINE KETONES 1+ (Negative); URINE NITRITE-REFLEX NEGATIVE (Negative); URINE PROTEIN (DIPSTICK) TRACE (Negative); URINE SPECIFIC GRAVITY 1.025 (1.005-1.035)
[2018-09-03 19:50] LABS: URINE LEUKOCYTES-REFLEX 2+ (Negative)
[2018-09-03 20:06] LABS: BACTERIA-REFLEX >30 Many /HPF (None Seen); CASTS None Seen /LPF (None Seen); CRYSTALS None Seen /LPF (None Seen); SQUAMOUS 0-3 Few /LPF (0-3); URINE RBC None Seen /HPF (0-2); URINE WBC-REFLEX >25 Many /HPF (0-5)
[2018-09-03 21:22] VITALS: BP 125/59
[2018-09-03 21:27] VITALS: BP 122/72
[2018-09-03 22:00] VITALS: BP 124/58
--- NOTE | 2018-09-04 03:27 | NUR ---
PT ARRIVED FROM ED APPROX 2200. DAUGHTER WITH PT, COMPLETED ADMISSION. VSS. PT ALERT TO SELF ONLY. COMPLAINS ON PAIN IN LLE, AND GENERALIZED PAIN. ORDERS IMPLEMENTED. FREQUENT ROUINDING. PT IN ROOM CLOSE TO NURSES STATION. WILL CONTINUE POC UINTIL EOS.
[2018-09-04 05:00] VITALS: BP 85/62
[2018-09-04 05:24] LABS: CALCIUM 8.5 mg/dL (8.5-10.1); CREATININE 0.5 mg/dL (0.6-1.0); MAGNESIUM 1.7 mg/dL (1.8-2.4); POTASSIUM 3.9 mmol/L (3.5-5.1)
--- NOTE | 2018-09-04 07:59 | EKG ---
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: : 1930 Requested By: Travis Turner Order Number: [id number] MD: Donaldo Cleveland Measurements Intervals [place] Rate: 73 P: 57 ND: 187 QRS: 20 QRSD: 101 T: 59 QT: 424 QTc: 468 Interpretive Statements Sinus rhythm Low voltage, extremity leads Compared to ECG 07/10/2017 10:41:56 Prolonged QT interval no longer present ST (T wave) deviation no longer present Electronically Signed On 09-04-2018 7:59:19 CDT by Donaldo Cleveland [email or web address] ��������������������������������������������� <ELECTRONICALLY SIGNED> ���������������������������������������� By: Donaldo Cleveland MD ��������������������������������������������� 09/04/18 0759 17 Donaldo Cleveland MD /EPI
[2018-09-04 09:03] VITALS: BP 134/61
--- NOTE | 2018-09-04 12:39 | NUR ---
INITIAL ASSESSMENT: Pt evaluated for d/c planning needs. Reviewed chart and spoke with nurse, pt and pt's daughter. Pt is a fpc care resident at [facility]. SPoke with sales support coordinator at facility and they are able to accept pt back on d/c from hospital. Asked project planner to fax clinical information to facility. Pt was able to assist with transfers prior to admission, but does not walk at facility. Dtr is agreeable with plans to return [facility] term care on d/c from hospital. Will remain available to assist as needed.
--- NOTE | 2018-09-04 19:41 | NUR ---
Assumed pt care at 7am.Pt in bed most of the time today alert and oriented to self only. Assessment completed.vss.Pt c/o Lt ankle pain,meds given as ordered with partial relief.Dr Gonzalez and Travis here,order noted.Pt refused c-spine xray this evening per classroom technology coach.It will be scheduled for am.Report off to Dali smith rn.
[2018-09-04 20:05] VITALS: BP 103/54
--- NOTE | 2018-09-04 20:59 | NUR ---
PT WAS TRANSFERED TO [facility] VIA BED, NEW IV INSERTED TO LEFT WRIST DUE TO PT PULLED EXISTING IV, REMAINS CONFUSED, ALERT/ORIENTED TO NAME ONLY, SENIOR SUITE RN TO CALL FAMILY TO UPDATE OF ROOM CHANGE. PT IN STABLE CONDITION, TOOK HS MEDS WITH APPLESAUCE, ATE 75% SUPPER, ABLE TO FEED SELF.
[2018-09-04 21:00] VITALS: BP 135/54
--- NOTE | 2018-09-04 22:37 | NUR ---
Pt transferred to at 2049 via bed. Pt is pleasantly confused,oriented to self only. Dtr Peggy notified at 2114 of pt transfer and appreciated call. Pt able to verbalize where it hurts and yells out when moved,voiced need to pee but unable to do so in the bedpan d/t pain. Voltaren gel applied to BLE as well as Tramadol given earlier,the pt is resting with eyes closed at this time.Fall precautions in place,will continue to monitor pt.
[2018-09-05 07:30] VITALS: BP 100/58
[2018-09-05] MEDS ORDERED: TRAMADOL 50 MG50 MG PO (07:57)
[2018-09-05] MEDS ORDERED: CEFUROXIME250 MG PO (07:58)
[2018-09-05] MEDS ORDERED: ELIQUIS5 M1 PO (07:59)
--- NOTE | 2018-09-05 10:15 | NUR ---
DISCHARGE NOTE: SW reviewed chart and spoke with nursing. Pt [facility] to [facility] from and is medically stable for discharge back to [facility] today. exercise planner to coordinate. Chart copy ordered. Nursing to call report. No additional SW needs identified at this time, but is available to assist should needs arise.
--- NOTE | 2018-09-05 10:18 | NUR ---
DISCHARGE ORDERS RECEIVED. PATIENT DISCHARGING BACK TO [facility] UNIT. CHART COPIED PER TEACHER ASST. DISCHARGE ORDERS, DISCHARGE SUMMARY, ALONG WITH ADDITIONAL CLINICAL INFORMATION FAXED TO [facility] ADMISSIONS. SAVI HARVEY, NOTIFIED AND IS AGREEABLE TO ALL. ALFONZO TO NOTIFY CM OF TRANSPORTATION TIME. UNIT CM/SW AWARE.
--- NOTE | 2018-09-05 10:29 | NUR ---
PATIENT CARE WAS ASSUMED AT 0715.PATIENT IS ALERT AND ORIENTED TO SELF.PATIENT HAS PAIN ALL OVER.PT HAS TAKEN I.V. OUT LAST NIGHT ON HER OWN. WAS OKAY TO LEAVE IV OUT.PT TAKES 2 ASSIST TO GET UP.MEDS ARE CRUSHED WITH APPLESAUCE.CALL LIGHT, PHONE, AND PERSONAL BELONGINGS ARE WITHIN.
--- NOTE | 2018-09-05 13:36 | NUR ---
PATIENT WAS DISCHARGE TO GO TO [facility].PATIENT WAS TAKEN BY W/C VAN.PATIENT PACKET WAS GIVEN TO TRANSPORTER.PATIENT HAD NO IV INPLACE.PAIN MEDS WERE GIVEN BEFORE PATIENT LEFT.PATIENT WAS GIVEN BATH AND CLOTHES WERE PLACE ON PATIENT BEFORE LEAVING.
== END 2018-09-05 13:44 | DRG 300 ==
LOC: ER 17:27 → EROBS 20:42 → 4E 20:42 → SICU 09-04 21:30
PROVIDERS: Emergency Medicine; Nurse Practitioner Acute Care; ADMIT Hospitalist
DX: I82.411 Acute embolism and thrombosis of right femoral vein (principal); N39.0 Urinary tract infection, site not specified; E87.1 Hypo-osmolality and hyponatremia; M16.12 Unilateral primary osteoarthritis, left hip; S83.92XA Sprain of unspecified site of left knee, initial encounter; F41.9 Anxiety disorder, unspecified; R10.819 Abdominal tenderness, unspecified site; F03.90 Unspecified dementia, unspecified severity, without behavioral disturbance, psychotic disturbance, mood disturbance, and anxiety; E66.9 Obesity, unspecified; Z68.38 Body mass index [BMI] 38.0-38.9, adult; Z90.49 Acquired absence of other specified parts of digestive tract; Z90.710 Acquired absence of both cervix and uterus; Z95.828 Presence of other vascular implants and grafts; Z87.81 Personal history of (healed) traumatic fracture; Z88.2 Allergy status to sulfonamides; Z88.8 Allergy status to other drugs, medicaments and biological substances; X58.XXXA Exposure to other specified factors, initial encounter; Y93.89 Activity, other specified; Y92.89 Other specified places as the place of occurrence of the external cause; Y99.8 Other external cause status
CPT/HCPCS: 10084; 15002

== ENCOUNTER 2019-08-15 17:25 | Inpatient (IN) | payer OTHER ==
[~2019-08-15] VITALS: Ht 165.1 cm; Wt 86.2 kg
[~2019-08-15 17:25] MED LIST changes: +BIOTENE ORALB44.3 ML PO; +BISACODYL SUPP10 MG RECTAL; +BUSPIRONE HCL10 MG PO; +CEFUROXIME250 MG PO; +CLARITIN10 MG PO; +DEPAKOTE125 MG PO; +ELIQUIS5 M1 PO; +GABAPENTIN 100100 MG PO; +IPRAT-ALBUT 0.5-3 ML INH; +KLOR-CON 1010 MEQ PO; +METOLAZONE 2.52.5 MG PO; +MILK OF MA400 MG/5 M PO; +NYAMYC15 GM TOP; +SPIRONOLACTONE25 M1 PO; +TRAMADOL 50 MG50 MG PO; +VOLTAREN GEL 1100 G2 TOP; +ZOLOFT25 MG PO
[2019-08-15 17:26] VITALS: BP 135/62
[2019-08-15 18:16] LABS: URINE BILIRUBIN NEGATIVE (Negative); URINE BLOOD NEGATIVE (Negative); URINE CLARITY CLEAR; URINE COLOR YELLOW; URINE GLUCOSE-RANDOM* NEGATIVE (Negative); URINE KETONES NEGATIVE (Negative); URINE LEUKOCYTES-REFLEX NEGATIVE (Negative); URINE NITRITE-REFLEX NEGATIVE (Negative); URINE PROTEIN (DIPSTICK) NEGATIVE (Negative); URINE UROBILINOGEN 0.2 E.U./dl (0.2-1.0)
[2019-08-15] MEDS ORDERED: CALCIUM CARBON500 MG PO (18:48)
[2019-08-15] MEDS ORDERED: FUROSEMIDE 20 M20 MG PO (18:50)
[2019-08-15] MEDS ORDERED: NEURONTIN100 MG PO (18:50)
[2019-08-15] MEDS ORDERED: ADULT WAL-100 MG/5 M PO (18:51)
[2019-08-15] MEDS ORDERED: MELATONIN5 MG SUBLING (18:52)
[2019-08-15] MEDS ORDERED: KLOR-CON 10 ER10 MEQ PO (18:53)
[2019-08-15] MEDS ORDERED: METOLAZONE 5 MG5 MG PO (18:53)
[2019-08-15] MEDS ORDERED: RAYOS5 MG PO (18:54)
[2019-08-15] MEDS ORDERED: PEPCID20 MG PO (18:54)
[2019-08-15 19:46] LABS: ABSOLUTE NEUTROPHILS 5.5 thou/uL (1.4-8.2); BASOPHILS 0.3 % (0.0-2.0); EOSINOPHILS 0.6 % (0.0-3.0); HEMATOCRIT 42.8 % (37.0-47.0); LYMPHOCYTES 14.4 % (24.0-44.0); MCH 34.5 pg (26.0-34.0); MCHC 32.6 g/dL (28.0-37.0); MCV 105.9 fL (80.0-100.0); MONOCYTES 11.6 % (1.0-8.0); PLATELET COUNT 117 thou/uL (150-400); POLYS 73.1 % (36.0-66.0); RBC 4.04 mil/uL (4.20-5.00); RDW 17.8 % (10.5-14.5); WBC 7.5 thou/uL (4.0-11.0)
[2019-08-15 19:57] LABS: ANION GAP 10 mmol/L (7-16); BUN 48 mg/dL (7-18); CALCIUM 10.3 mg/dL (8.5-10.1); CHLORIDE 106 mmol/L (98-107); CO2 24 mmol/L (21-32); CREATININE 1.4 mg/dL (0.6-1.0); GLUCOSE 106 mg/dL (74-106); POTASSIUM 4.6 mmol/L (3.5-5.1); SODIUM 140 mmol/L (136-145)
[2019-08-15 20:07] LABS: ALBUMIN 3.3 g/dL (3.4-5.0); SGOT 33 U/L (15-37); SGPT 36 U/L (30-65); TOTAL BILIRUBIN 1.9 mg/dL (<0.1-1.0); TOTAL PROTEIN 7.5 g/dL (6.4-8.2); TROPONIN-I <0.06 ng/mL (<0.06)
[2019-08-15 22:35] VITALS: BP 137/52
--- NOTE | 2019-08-16 | NUR ---
LAB CALLED TO DRAW ANOTHER SET OF CULTURES. PT TAKEN TO THE FLOOR. PTS IV WILL NOT DRAW EASILY
--- NOTE | 2019-08-16 02:11 | NUR ---
PATIENT ARRIVED FROM ED VIA CART AND BRAILLE OPERATOR. IVF BOLUS INFUSING PER ORDER. WILL BE ON CONTINUOUS FLUIDS FOLLOWING BOLUS. ALERT TO NAME AT TIMES. PATIENT HAS DEMENTIA AND UNABLE TO RECEIVE INFORMATION. BEDREST WITH BED ALARM ACTIVATED. SCD'S IN PLACE. NO WOUNDS NOTED. INCONTINENT OF BOWEL AND BLADDER. WILL MONITOR.
[2019-08-16 03:44] VITALS: BP 112/40
[2019-08-16 05:17] VITALS: BP 140/65
[2019-08-16 06:02] LABS: CALCIUM 9.8 mg/dL (8.5-10.1); CREATININE 1.2 mg/dL (0.6-1.0); POTASSIUM 3.8 mmol/L (3.5-5.1)
--- NOTE | 2019-08-16 06:28 | NUR ---
PATIENT WAS GIVEN TYLENOL 650MG CRUSHED AND MIXED WITH PUDDING THIS AM FOR GROANING ALONG WITH SCHEDULED AM MEDS. TAKEN W/O COMPLICATION. INCONTINENT OF STOOL AND URINE. RESTING AT TIME OF NOTE. WILL MONITOR.
[2019-08-16 08:00] VITALS: BP 129/57
--- NOTE | 2019-08-16 18:51 | NUR ---
VSS-AFEBRILE. LUNGS CONGESTED IN ALL VAZ BILATERALLY. LETHARGIC AND DISORIENTED X 4. CALM AND COOPERATIVE, MUMBLES AND OCCASIONALLY TALKS BUT DOESNT MAKE ANY SENSE. APPEARS TO HAVE GENERALIZED PAIN, EVIDENCED BY MOANING WITH ANY TURNS OR MAIPULATION. FEMALE EXTERNAL CATHETER APPLIED DUE TO INCONTINENCE OF BOWEL AND BLADDER. POOR APPETITE, BUT TOOK IN LARGE AMOUNT OF FLUIDS AND TONGUE APPEARS DRY AND CRACKED. TWO SMALL BM'S THIS SHIFT. SOFT, BROWN STOOL, BS ARE HYPERACTIVE. TURNED AND OFFERED FLUIDS EVERY TWO HOURS FOR COMFORT. IV PATENT AND IS WITHOUT S/S OF INFILTRATION. FALL PRECAUTIONS IN PLACE, IN ISOLATION UNTIL COVID-19 TEST RESULTS COME BACK.
--- NOTE | 2019-08-16 21:02 | NUR ---
1900 ASSUMED CARE OF PT AFTER REPORT. 1930 iv IN RWRIST INFILTRATED, REMOVED WITH CATHETER INTACT, IV 22# STARTED IN [facility] WITH 1 ATTEMPT, FLUIDS RESTARTED PER DR ORDER, EXTERNAL CATH IN PLACE WITH GOOD OUTPUT 100CC+ PER HOUR PT DRINKING WELL WITH 200 CC IN THEN 118 CC IN ORAL INTAKE, PT APPEARS TO BE IN PAIN WITH MOVEMENT, UNABLE TO RATE, PT WAS DISORIENTED X 4, BUT NOW IS ORIENTED TO PERSON, AND KNOWS HER DAUGHTERS NAMES. WILL CONTINUE TO MONITOR AND OFFER FLUIDS PO. PT IS A Q2 HOUR TURN VITAL SIGNS STABLE, FALL PRECAUTIONS IN PLACE, AND SCD'S IN PLACE, LEFT LEG WITH SLIGHTLY MORE EDEMA THAN R LEG.
[2019-08-16 21:08] VITALS: BP 125/66
[2019-08-17 03:44] VITALS: BP 128/80
[2019-08-17 08:19] LABS: CALCIUM 9.4 mg/dL (8.5-10.1); POTASSIUM 3.9 mmol/L (3.5-5.1)
[2019-08-17 09:44] VITALS: BP 117/67
--- NOTE | 2019-08-17 11:11 | NUR ---
Received awake on bed. Due medications given as prescribed, crushed and mixed in apple sauce; pt swallowed w/o difficulty. On room air. Vital signs stable. A+O to self only, on and off restlessness; demented. On mechanically ground diet- assisted and encouraged in eating and drinking; kept upright during feeding, no coughing and swallowing problem noted. Turned on her sides every 2 hours. Incontinent of bowel and bladder; checked frequently and changed as needed; with female external yoo in place, draining well- output measured and recorded accordingly. With edema noted on her L leg- non weeping; for ultrasound today, kept elevated. 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 With NS at 75cc/hr, infusing well on her L hand- wrapped in coban. SCDs in place. PRN tylenol given as prescribed for pain, pt unable to verbalize but with facial indications of pain specially upon movement and turnings. Assisted in ADLs. With skin tear on her L arm- scabbed and dry. Falls bundle in place. Still a/w Covid test results. Pt seen by Dr Gonzalez- to hernan IVF, saline locked; plan to discharge back to [facility] in AM. Pt's daughter Peggy called, update given; to be informed once results are back and if pt will be transferred or discharged. To continue monitoring patient.
--- NOTE | 2019-08-17 13:02 | EKG ---
[facility] [place] [address] [place] [address] ELECTROCARDIOGRAM REPORT Name: ESTRELLA CHOE Room #: 361-P ADM IN M.R.#: [id number] Admission: 08/15/19 Attend Phys: Eliceo [place] MD Discharge: Date of : 34 Report #: [id number] THIS REPORT FOR: cc: Pino Valadez Ryan D. DO Couchonnal, Luis F. 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
[2019-08-17 14:44] VITALS: BP 102/43; BP 102/53; BP 127/75
[2019-08-17 20:39] VITALS: BP 139/74
--- NOTE | 2019-08-17 21:43 | NUR ---
PT RECEIVED AT 1900, UPON INITIAL ASSESSMENT PT WAS MUMBLING BUT NOT COHERENTLY, PT UNABLE TO COMMUNICATE NEEDS/EMOTIONS/PX. MEJIA BAKERS FACES IS 2 BASED ON GRIMACING. PT MEDS CRUSHED AND ADMINISTERED. PT REPOSITIONED PER POC. COVID TEST RESULT POPULATED NEGATIVE, TRANSFERRING TO FOURTH FLOOR. HEART SOUND UPON AUSCULTATION SOUND MUFFLED.
--- NOTE | 2019-08-18 00:51 | NUR ---
PT TRANSFERRED FROM 3W TO 4S DUE TO NOT DETECTED COVID19 RESULT. PT AROUSES TO NAME AND TACTILE STIMULATION. PT OBSERVED TO BE RESTLESS, RESPONDING TO INTERNAL STIMULI WITH EYES CLOSED, ATTEMPTING TO SIT UP AND TAKE OFF CLOTHES. PT NOTED TO HAVE FLACC OF 4. PT HAS PRN PO APAP Q4HR AVAILABLE. PT CONTINUES WITH PUREED DIET, NO INTAKE AT THIS TIME. CONTINUES TO REST IN BED, FREQUENT REPOSITIONING ENCOURAGED. ROOM NEAR NURSES STATION, BED IN LOWEST POSITION, BED ALARM ON, CALL LIGHT WITHIN REACH. WILL CONTINUE TO MONITOR.
[2019-08-18 04:35] VITALS: BP 109/59
[2019-08-18 07:41] VITALS: BP 121/58
[2019-08-18] MEDS ORDERED: ELIQUIS5 MG PO (09:47)
--- NOTE | 2019-08-18 10:58 | NUR ---
PT ADMITTED RELATED TO [facility], [facility]. CM REVIEWED CHART AND SPOKE WITH CARE TEAM. CM CALLED AND SPOKE WITH PT'S DTR THIS MORNING. SHE INDICATED THAT PT HAD BEEN LIVING IN LTC AT [facility] FOR THE LAST YEAR. SHE INDICATED THAT PT HAD USED A WHEELCHAIR TO ASSIST WITH MOBILITY OVEREDGER AND THAT PT HADN'T BEEN ABLE TO ASSIST WITH TRANSFERS OVEREDGER AND HAD BEEN NEEDING LAXMI LIFT. DTR INDICATED THAT PLAN WOULD BE FOR PT TO RETURN TO [facility] ONCE MEDICALLY STABLE. CM TO FOLLOW INDICATED WITH DC PLANNING.
--- NOTE | 2019-08-18 14:07 | NUR ---
PT DISCHARGING BACK TO [facility] FAXED DC ORDERS/SUMMARY TO FACILITY SPOKE WITH MARIA A IN ADM SHE RECEIVED ORDERS AND ARRANGED TRANSPORT BY [facility] FOR [phone] TODAY. SW TO NOTIFY DTR (SAVI) OF DC AND TIME OF TRANSPORT. UNIT NOTIFIED AND CHART COPY PER US. RN TO CALL REPORT TO [phone].
--- NOTE | 2019-08-18 14:11 | NUR ---
CARE TEAM INDICATED THAT PT IS MEDICALLY STABLE TO DISCHARGE BACK TO [facility] THIS DAY. CHART COPY ORDERED. ORDERS FAXED. CM AND DC SHIPPER/RECEIVER ATTEMPTED PC TO PT'S DTR WITH NO ANSWER AND FULL VOICEMAIL. TO ATTEMPT TO NOTIFY SON. TRNASPORT ARRANGED FOR [phone]. NO OTHER CM INTERVENTION INDICATED. CASE CLOSED.
--- NOTE | 2019-08-18 16:06 | NUR ---
DC ORDERS RECEIVED. A&O TO SELF. IV REMOVED FROM L HAND. REPORT CALL ED TO NURSE AGUIRRE AT FACILITY. ISIDROER BARBARA PICKED ESCORTED PT BACT TO FACILITY, DAUGHTER IS AWARE.
== END 2019-08-18 15:55 | DRG 682 ==
LOC: ER 17:25 → 4S 22:21 → EROBS 22:21 → 3W 23:08 → 4S 08-17 22:36
PROVIDERS: Nurse Practitioner Family; Student in an Organized Health Care Education/Training Program; ADMIT Hospitalist
DX: N17.9 Acute kidney failure, unspecified (principal); G93.41 Metabolic encephalopathy; I50.32 Chronic diastolic (congestive) heart failure; F41.9 Anxiety disorder, unspecified; F32.9 Major depressive disorder, single episode, unspecified; M19.90 Unspecified osteoarthritis, unspecified site; J30.9 Allergic rhinitis, unspecified; G62.9 Polyneuropathy, unspecified; E86.0 Dehydration; K59.00 Constipation, unspecified; D50.9 Iron deficiency anemia, unspecified; I71.9 Aortic aneurysm of unspecified site, without rupture; R41.0 Disorientation, unspecified; F03.90 Unspecified dementia, unspecified severity, without behavioral disturbance, psychotic disturbance, mood disturbance, and anxiety; Z90.89 Acquired absence of other organs; Z90.710 Acquired absence of both cervix and uterus; Z87.01 Personal history of pneumonia (recurrent); Z86.718 Personal history of other venous thrombosis and embolism; Z79.01 Long term (current) use of anticoagulants; Z86.711 Personal history of pulmonary embolism; Z95.828 Presence of other vascular implants and grafts; Z88.2 Allergy status to sulfonamides; Z88.8 Allergy status to other drugs, medicaments and biological substances; Z87.891 Personal history of nicotine dependence; Z79.899 Other long term (current) drug therapy
CPT/HCPCS: 10080; 10195